=== PATIENT | male | born 1970 | race Caucasian/White ===

== ENCOUNTER 2019-10-22 12:11 | Emergency (ER) | payer OTHER ==
[~2019-10-22] VITALS: Ht 182.9 cm; Wt 124.7 kg
[~2019-10-22 12:11] MED LIST: FLEXERIL PO; ULTRAM 50MG TAB50 MG PO; ZOLOFT100 MG PO
[2019-10-22 12:51] LABS: HEMATOCRIT 42.6 % (42.0-52.0); HEMOGLOBIN 14.3 gm/dL (14.0-18.0); MCH 27.3 pg (26.0-34.0); MCHC 33.6 g/dL (28.0-37.0); MCV 81.3 fL (80.0-100.0); MPV 8.5 fl. (7.2-11.1); NUCLEATED RBCS 0 /100WBC; PLATELET COUNT* 294 thou/uL (150-400); RBC 5.24 mil/uL (4.50-6.00); RDW-CV 17.9 % (10.5-14.5); WBC 18.2 thou/uL (4.0-11.0)
[2019-10-22 12:54] LABS: CALCIUM 8.5 mg/dL (8.5-10.1); CREATININE 1.4 mg/dL (0.6-1.3); POTASSIUM 4.1 mmol/L (3.5-5.1)
[2019-10-22 13:00] LABS: APTT 25.4 Seconds (25.0-31.3); PROTIME 10.8 Seconds (9.20-11.50)
[2019-10-22 13:05] LABS: ALBUMIN 3.6 g/dL (3.4-5.0); MAGNESIUM 1.8 mg/dL (1.8-2.4); TOTAL BILIRUBIN 0.8 mg/dL (<0.1-1.0); TOTAL PROTEIN 7.5 g/dL (6.4-8.2)
[2019-10-22 13:31] LABS: ABSOLUTE EOSINOPHILS 0.2 thou/uL (0.0-0.7); ABSOLUTE LYMPHOCYTES 0.5 thou/uL (0.8-5.3); ABSOLUTE MONOCYTES 1.3 thou/uL (0.0-1.2); ABSOLUTE NEUTROPHILS 16.2 thou/uL (1.6-8.1); ANISOCYTOSIS 1+; PLATELET ESTIMATE ADEQUATE
[2019-10-22] MEDS ORDERED: DOXYCYCLINE 10100 M2 PO (13:54)
[2019-10-22 14:02] VITALS: BP 112/66
--- NOTE | 2019-10-23 10:55 | EKG ---
[place] [address] ELECTROCARDIOGRAM REPORT Name: KAMAR CARRENO Room: [facility]#: [id number] Admission: 10/22/19 Attend Phys: Discharge: 10/22/19 Date of : 66 Date of Service: 10/22/19 1221 Report #: [id number] THIS REPORT FOR: //name// [facility] ED Test Date: 2019-10-22 Test Time: 12:21:06 Pat Name: KAMAR CARRENO Department: Room: Gender: [employer] 9 [employer] 10 Vis[employer]: [place] : 1970 Requested By: Americo Carmichael Order Number: [id number] MD: Patricio Flores Measurements Intervals Fries Rate: 101 P: 24 VT: 179 QRS: 34 QRSD: 105 T: 36 QT: 341 QTc: 442 Interpretive Statements Sinus tachycardia RSR' in V1 or V2, right VCD or RVH No previous ECG available for comparison Electronically Signed On 10-23-2019 10:55:44 CDT by Patricio Flores [email or web address] <ELECTRONICALLY SIGNED> By: Patricio Flores MD, [facility] 10/23/19 1055 20 20 Patricio Flores MD, [facility] /EPI
== END 2019-10-22 14:04 | disposition home or self-care (01) ==
LOC: M.ERS 12:11
PROVIDERS: Emergency Medicine Emergency Medical Services
DX: J18.9 Pneumonia, unspecified organism (principal); Z20.828 Contact with and (suspected) exposure to other viral communicable diseases